=== PATIENT | female | born 1945 | race Caucasian/White ===

== ENCOUNTER 2017-09-08 00:56 | Inpatient (IN) | payer BC ==
[~2017-09-08] VITALS: Ht 160 cm; Wt 89.4 kg
[2017-09-08] VITALS (10 sets, daily range): BP systolic 123–170; BP diastolic 70–110
--- NOTE | 2017-09-08 01:00 | NUR ---
ARRIVAL PATIENT AMBULATORY, REQUESTING TO USE THE RESTROOM URINE SAMPLE OBTAINED ASSISTED TO ROOM 1, CONNECTED TO BEDSIDE MONITOR HR AFIB 177 BP 170/110 RR 18 O2 94% ON RA TEMP 98.5 DENIES PAIN STATES SHE HAS BEEN ON A LONG ROAD TRIP AND WHEN SHE GOT HOME SHE RELAXED WITH A GLASS OF WINE AND SUDDENLY BEGAN TO FEEL PALPITATIONS IN HER CHEST STATES SHE HAS NEVER HAD THIS HAPPEN BEFORE DENIES ALL MEDICAL HISTORY, HOWEVER IS A PATIENT OF DR CORNEJO FOR "IRREGULAR HEART RHYTHM" NOT OFFICALLY DIAGNOSED WITH AFIB, NOT TAKING A BLOOD THINNER OF ANY KIND. STATES SHE ONLY TAKES LOSARTAN AND "SOME KIND OF CHOLESTEROL MEDICATION" AT THE BEDSIDE, UNABLE TO REMEMBER MEDICATION NAMES.
--- NOTE | 2017-09-08 01:05 | NUR ---
RESTROOM REQUESTING TO USE THE RESTROOM TO HAVE A BOWEL MOVEMENT. STEADY GAIT TO AND FROM THE RESTROOM. UPON RETURN FROM RESTROOM, PATIENT RECONNECTED TO BEDSIDE MONITOR, HR AFIB 93. DR CARD AT BEDSIDE TO ASSESS PATIENT. NEW ORDERS RECEIVED FOR 20MG CARDIZEM IV BOLUS, 10MG AT A TIME.
--- NOTE | 2017-09-08 01:10 | NUR ---
CARDIZEM 10MG IV CARDIZEM ADMINISTERED AND FLUSHED HR AFIB 177 BP 170/110 RR 16 O2 98% DENIES PAIN STATES SHE STILL FEELS ANXIOUS AND LIKE HER HEART IS POUNDING OUT OF HER CHEST.
[2017-09-08] MEDS ORDERED: CARDIZEM IV ONE ×4 (01:12→02:30)
--- NOTE | 2017-09-08 01:12 | NUR ---
1/2 NS NEW ORDER RECEIVED TO INITIATE 1/2NS AT 100CC/HR.
[2017-09-08] MEDS ORDERED: HNS 1000ML 1,000 ML ONE (01:14)
[2017-09-08 01:17] LABS: BASOPHIL % 0.4 % (0.0-0.2); EOSINOPHIL # 0.2 10^3/uL (0.0-0.2); EOSINOPHIL % 2.1 % (0.0-5.0); HEMOGLOBIN 13.5 g/dL (12.0-15.0); LYMPHOCYTES # 3.5 10^3/uL (1.0-4.8); LYMPHOCYTES % 42.7 % (24.0-44.0); MEAN CELL HGB 29.5 pg (26-34); MEAN CELL HGB CONCENTRATION 32.5 g/dL (33-37); MEAN CORP VOLUME 90.8 fL (78-100); MEAN PLATELET VOLUME 8.9 fL (7.8-11.0); MONOCYTES # 0.8 10^3/uL (0.3-0.8); MONOCYTES % 9.4 % (5.0-12.0); NEUTROPHIL # 3.7 10^3/uL (1.8-7.7); NEUTROPHILS % 45.2 % (41.0-85.0); RED CELL DISTRIBUTION WIDTH 14.4 % (11.5-14.5); WHITE BLOOD CELL 8.1 10^3/uL (4.5-11.0)
--- NOTE | 2017-09-08 01:18 | PCM.EKG ---
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
--- NOTE | 2017-09-08 01:19 | NUR ---
CARDIZEM 10MG IV ADMINISTERED AND FLUSHED HR ABIB 101 BP 166/70 RR 16 O2 97% DENIES PAIN, STATES SHE IS FEELING LESS ANXIOUS BUT CAN STILL FEEL HER HEART POUNDING INSIDE HER CHEST.
--- NOTE | 2017-09-08 01:25 | NUR ---
EDUCATION EXPLAINED CARDIZEM BOLUS, AFIB DISEASE PROCESS, POSSIBLE ADMISSION PATIENT HAS NO FURTHER QUESTIONS, CONCERNS OR NEEDS REMAINS AT BEDSIDE
[2017-09-08] MEDS ORDERED: CARDIZEM IV STA (01:27)
--- NOTE | 2017-09-08 01:27 | ER.PDOC ---
General Chief Complaint: Palpitations Stated Complaint: PALPITATIONS Time seen by MD: 01:24 Source: patient, family Exam Limitations: no limitations History of Present Illness Initial Comments 72 year old white female with acute onset of palpitation and dizziness. Started less than an hour prior to consult with no chest pain. Sudden in onset with no similar episodes in the past. No fever. Remember taking an OTC decongestant prior to coming to the hospital. Timing/Duration: 1 hour Quality: fast, pounding heart beat, dizziness History of: decongestant Modifying Factors: defecating Associated Symptoms: dizziness Allergies: Coded Allergies: No Known Allergies (Unverified , 09/08/17) Past Medical History Medical History: arrhythmia Surgical History: appendectomy, cholecystectomy, tonsillectomy LMP (females 10-50): postmenopause Social History Smoking: non-smoker Alcohol Use: occassionally Drug Use: none Constitutional: weakness EENTM: nose congestion Respiratory: no symptoms reported Cardiovascular: see HPI Gastrointestinal: no symptoms reported Genitourinary: no symptoms reported Musculoskeletal: no symptoms reported Skin: no symptoms reported Psychiatric/Neurological: no symptoms reported Endocrine: no symptoms reported Hematologic/Lymphatic: no symptoms reported Physical Exam HEENT: PERRL/EOMI, Normal ENT Inspection, TMs Normal, Pharynx Normal Neck: Non-Tender, Full Range of Motion, Supple, Normal Inspection Respiratory: chest non-tender, lungs clear, normal breath sounds, no respiratory distress, no accessory muscle use Cardiovascular: No Edema, No Gallop, No JVD, Tachycardia, Irregularly Irregular Gastrointestinal: Normal Bowel Sounds, No Organomegaly, No Pulsatile Mass, Non Tender, Soft Extremities: Normal Range of Motion, Non-Tender, Normal Inspection, No Pedal Edema, No Calf Tenderness, Normal Capillary Refill 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 Ha Duration or Time Spent with Pa: PARUL DICKERSON MD Sep 08, 2017 01:27
[2017-09-08] MEDS ORDERED: NS 100ML 100 ML IV ONE (01:42)
--- NOTE | 2017-09-08 01:42 | NUR ---
CARDIZEM GTT NEW ORDER RECEIVED TO START CARDIZEM GTT AT 2.5MG/HR HR AFIB 102-116 BP 170/82 RR 16 O2 97% DENIES PAIN, STATES SHE IS BEGINNING TO FEEL BETTER.
[2017-09-08] MEDS ORDERED: D5W IV ONE (01:43)
--- NOTE | 2017-09-08 01:45 | DIREP ---
PROCEDURE:CHEST 1 VIEW COMPARISON:[facility], CT, CT-ABDOMEN /PELVIS W W/O CONTRAST, 03/20/2012, 08:12 AM. [facility], CR, ABD 2V WITH CXR, 02/05/2011, 01:51 AM. INDICATIONS:HEART PALPITATIONS FINDINGS: LUNGS/PLEURA:No significant pulmonary parenchymal abnormalities. No effusions. VASCULATURE:Normal. Unremarkable pulmonary vasculature. CARDIAC:Normal. No cardiac silhouette abnormality or cardiomegaly. MEDIASTINUM:Normal. No visible mass or adenopathy. BONES:Normal. No fracture or visible bony lesion. OTHER:EKG leads overlie the chest. CONCLUSION:No acute cardiopulmonary abnormalities. Dictated by: Sunny Sheffield M.D. on 09/08/2017 at 01:44 AM
[2017-09-08 01:47] LABS: ALANINE AMINOTRANSFERASE(ML) 31 U/L (12-78); ALKALINE PHOSPHATASE 70 U/L (50-136); ASPARTATE AMINO TRANSFERASE 22 U/L (0-35); CALCIUM 8.5 mg/dL (8.4-10.5); CARBON DIOXIDE 23.5 mmol/L (20.0-32); GLUCOSE 136 mg/dL (70-110)
--- NOTE | 2017-09-08 01:50 | NUR ---
DR ELISEO CARD ON THE PHONE WITH DR GOMES REGARDING POSSIBLE ADMISSION. ACCEPTED ADMISSION, NEW ORDERS RECEIVED FROM DR GOMES TO STOP THE CARDIZEM GTT AND INITIATE LOPRESSOR IV SO PATIENT CAN BE ADMITTED TO THE MEDICAL SURGICAL FLOOR
[2017-09-08] MEDS ORDERED: TOPROL XL PO STA (01:55)
[2017-09-08] MEDS ORDERED: HNS 1000ML 1,000 ML IV ONE (02:00)
[2017-09-08] MEDS ORDERED: TOPROL XL PO ONE (02:08)
[2017-09-08] MEDS ORDERED: LOPRESSER ONE ×2 (02:10→02:30)
--- NOTE | 2017-09-08 02:10 | NUR ---
RESTROOM BEDSIDE TOILET PLACED AT BEDSIDE TO DECRASE STRESS TO HEART, ALSO LETS PATIENT REMAIN ON MONITOR AND CONNECTED TO IVF. VOIDED AND BACK IN BED, STEADY GAIT NOTED
[2017-09-08] MEDS ORDERED: LOPRESSER IVP STA (02:19)
--- NOTE | 2017-09-08 02:20 | NUR ---
AFIB DR CARD NOTIFIED PATIENT'S HEART RATE INCREASING TO 150-165 WITH MINIMAL MOVEMENT. NEW ORDER RECEIVED FOR LOPRESSOR 5MG IV X1 WELL ASPIRIN 325MG PO X1
[2017-09-08] MEDS ORDERED: ASPIRIN PO STA (02:22)
[2017-09-08] MEDS ORDERED: ASPIRIN ONE (02:23)
--- NOTE | 2017-09-08 02:34 | NUR ---
LOPRESSOR 5MG IV ADMINISTERED AND FLUSHED HR AFIB 134 BP 153/74 RR 16 O2 97% RA NO PAIN 0238 HR AFIB 75 BP 132/75 RR 18 O2 98% RA NO PAIN
--- NOTE | 2017-09-08 03:07 | NUR ---
ADMIT PATIENT INFORMED OF ROOM ASSIGNMENT ROOM 303 NO FURTHER QUESTIONS OR CONCERNS AT THIS TIME, EXPLAINED ALL MEDICATIONS: LOPRESSOR IV LOPRESSOR PO CARDIZEM IV 1/2NS HR AFIB 82 BP 156/89 RR 14 O2 95% RA NO PAIN
--- NOTE | 2017-09-08 07:00 | NUR ---
REPORT RECEIVED REPORT, ASSUMED CARE OF PT
--- NOTE | 2017-09-08 08:31 | PCM.EKG ---
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
[2017-09-08] MEDS ORDERED: THYR60TA PO (08:49)
[2017-09-08] MEDS ORDERED: LEVO75TA6 PO (08:49)
[2017-09-08] MEDS ORDERED: HYDR12.53 PO (08:49)
[2017-09-08] MEDS ORDERED: LOSA50TA6 PO (08:49)
[2017-09-08] MEDS ORDERED: OMEP20CA12 PO (08:49)
[2017-09-08] MEDS ORDERED: LOPRESSOR PO SCH (09:00)
[2017-09-08] MEDS ORDERED: COZAAR ONE (09:52)
[2017-09-08] MEDS ORDERED: PROTONIX PO ONE (09:52)
[2017-09-08] MEDS ORDERED: HYDROCHLOROTHIAZIDE ONE (09:52)
[2017-09-08] MEDS ORDERED: LOPRESSER PO SCH (10:30)
[2017-09-08] MEDS ORDERED: METO25TA4 PO (10:36)
[2017-09-08] MEDS ORDERED: ASPI325T17 PO (10:36)
--- NOTE | 2017-09-08 10:53 | PRM.DC ---
Discharge Summary Date of Discharge: Sep 08, 2017 Reason for Visit: Palpitations History Present Illness: (1) Paroxysmal atrial fibrillation with RVR SEVERITY: MILD INTERMITTENT Status: Resolved ICD Code: I48.0 - Paroxysmal atrial fibrillation SNOMED: 994520401, [id number] Assessment & Plan: Metoprolol twice daily (2) Chronic atrial fibrillation SEVERITY: MILD PERSISTENT Status: Chronic ICD Code: I48.2 - Chronic atrial fibrillation SNOMED: 572961902 Assessment & Plan: Continue current medical management Aspirin 325mg daily Follow up with Cardiology next available appointment (3) Hypothyroidism SEVERITY: MILD PERSISTENT Status: Chronic ICD Code: E03.9 - Hypothyroidism, unspecified SNOMED: 85192663 Assessment & Plan: Continue current medical management General: Alert, Oriented X3, Cooperative, No acute distress HEENT: PERRLA, EOMI Neck: Supple, No JVD Lungs: Clear to auscultation, Normal air movement Heart: Other (irregularly irregular, rate less than 100) Abdomen: Normal bowel sounds, Soft, No tenderness Extremities: No clubbing, No cyanosis Skin: No breakdown, No significant lesion Neuro: Normal speech, Strength at 5/5 X4 ext, Cranial nerves 3-12 NL Psych/Mental Status: Mood NL Results(Labs/Rad) Laboratory Tests Test 09/08/17 01:14 09/08/17 09:20 White Blood Count 8.1 10^3/uL Red Blood Count 4.57 10^6/uL Hemoglobin 13.5 g/dL Hematocrit 41.5 % Mean Corpuscular Volume 90.8 fL Mean Corpuscular Hemoglobin 29.5 pg Mean Corpuscular Hemoglobin Concent 32.5 g/dL Red Cell Distribution Width 14.4 % Platelet Count 316 10^3/uL Mean Platelet Volume 8.9 fL Neutrophils (%) (Auto) 45.2 % Lymphocytes (%) (Auto) 42.7 % Monocytes (%) (Auto) 9.4 % Neutrophils # (Auto) 3.7 10^3/uL Lymphocytes # (Auto) 3.5 10^3/uL Monocytes # (Auto) 0.8 10^3/uL Absolute Immature Granulocyte (auto 0.02 10^3 u/L Eosinophils % 2.1 % Basophils % 0.4 % Basophils # 0.0 10^3/uL Eosinophil Count 0.2 10^3/uL Prothrombin Time 9.4 SEC Prothrombin Time INR (Non-Therap) 0.9 Activated Partial Thromboplast Time 24.0 SEC D-Dimer 0.46 mg/L Sodium Level 142 mmol/L Potassium Level 3.5 mmol/L Chloride Level 107.0 mmol/L Carbon Dioxide Level 23.5 mmol/L Anion Gap 15.0 Blood Urea Nitrogen 9 mg/dL Creatinine 0.90 mg/dL Estimated GFR () 74.5 BUN/Creatinine Ratio 10.0 Glucose Level 136 mg/dL Calcium Level 8.5 mg/dL Total Bilirubin 0.2 mg/dL Aspartate Amino Transf (AST/SGOT) 22 U/L Alanine Aminotransferase (ALT/SGPT) 31 U/L Alkaline Phosphatase 70 U/L Total Creatine Kinase 86 U/L 68 U/L Creatine Kinase MB 0.7 ng/mL 1.0 ng/mL Troponin I < 0.02 ng/mL 0.05 ng/mL Pro-B-Type Natriuretic Peptide 265 pg/mL Total Protein 6.8 g/dL Albumin 3.2 g/dL Globulin 3.6 Percent Immature Gran (Cell Imm) 0.20 % Helicobacter pylori Screen NEGATIVE Scheduled Aspirin (Aspirin Ec), 325 MG PO DAILY24 Hydrochlorothiazide (Hydrochlorothiazide), 1 CAP PO DAILY, (Reported) Levothyroxine Sodium (Levothyroxine Sodium), 1 TAB PO DAILY, (Reported) Losartan Potassium (Losartan Potassium), 1 TAB PO DAILY, (Reported) Metoprolol Tartrate 25MG (Lopresser 25MG), 12.5 MG PO BID Omeprazole (Omeprazole), 1 CAP PO DAILY, (Reported) Thyroid,Pork ([place] Thyroid), 1 TAB PO DAILY, (Reported) Sepsis Evaluation @ Discharge Course Blood Pressure Systolic: 139 Blood Pressure Diastolic: 84 Blood Pressure Mean: 102 Notes see dictated report Plan Discharge Date: Sep 08, 2017 Dicharge DX: 1. Paroxysmal atrial fibrillation with RVR, 2. Chronic atrial fibrillation Discharge Disposition: Stable Plan Medications per discharge list Diet and activity as tolerated Follow up with PCP and Cardiology next available appointment Discharge plans discussed with patient, she is her own decision maker and does understand and concur with plans Time spent 25 minutes Problem Qualifiers (1) Hypothyroidism: Hypothyroidism type: acquired Qualified Codes: E03.9 - Hypothyroidism, unspecified VINAY GOMES MD Sep 08, 2017 10:53
--- NOTE | 2017-09-08 11:33 | NUR ---
DISCHARGE DISCHARGE INSTRUCTIONS GIVEN, EDUCATION PROVIDED ON DISEASE PROCESS, NEW MEDICATIONS, AND FOLLOW UP APPOINTMENTS. AT BEDSIDE. PT VERBALIZED UNDERSTANDING. NO QUESTIONS AT THIS TIME. PT AMBULATED OFF UNIT TO PRIVATE VEHICLE ACCOMPANIED BY . NO S/S OF DISTRESS NOTED.
--- NOTE | 2017-09-08 11:50 | NUR ---
DISCHARGE PLANNING: SS VISITED WITH PT REGARDING DISCHARGE PLANNING NEEDS. PT LIVES HOME WITH HER . 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 NO FURTHER NEEDS NOTED OR IDENTIFIED AT THIS TIME GOAL IS TO RETURN BACK HOME WITH TO ROUTINE SELF CARE.
--- NOTE | 2017-09-08 12:24 | HPH ---
ADMIT DATE: 09/08/2017 CHIEF COMPLAINT: Palpitations. HISTORY OF PRESENT ILLNESS: The patient is a pleasant 72-year-old woman with a past medical history significant for hypothyroidism, chronic atrial fibrillation, hypertension who presented to the ER with complaints of palpitations and dizziness. She has known chronic atrial fibrillation and is followed by cardiology in [place]. She is on only a small dose aspirin. She has no history of diabetes, heart failure, or stroke per her history. She has had a couple of episodes of palpitations, this one was enough to make her concerned and started less than an hour prior to arrival to the ER. She was taking some [id number] decongestants prior to coming to the hospital. She also states she missed some of her blood pressure medications. She has been on recent road trip and watching baseball games for a relative for extended period of time. She denies any chest pain. Overnight, her heart rate did significantly improve. She was given IV Cardizem in the Emergency Room. PAST MEDICAL HISTORY: Includes chronic atrial fibrillation, hypothyroidism, and hypertension. PAST SURGICAL HISTORY: She has appendectomy, cholecystectomy, tonsillectomy. ALLERGIES: NO KNOWN DRUG ALLERGIES. HOME MEDICATIONS: List includes aspirin 81 mg daily, losartan 50 mg daily, levothyroxine 75 mcg daily, hydrochlorothiazide 12.5 mg daily, omeprazole 20 mg daily. SOCIAL HISTORY: She lives at home. No alcohol, tobacco or illicit drug use history. FAMILY HISTORY: Negative for early coronary artery disease or diabetes. REVIEW OF SYSTEMS: CARDIAC: Denies any chest pain, shortness of breath or dyspnea on exertion. PULMONARY: No cough, sputum production or pleuritic chest pain. GASTROINTESTINAL: No nausea, vomiting, diarrhea or constipation. All else negative in 10 point review of system except as in HPI. PHYSICAL EXAMINATION: VITAL SIGNS: Upon arrival to the Emergency Room, height 160 cm, weight 89.4 kilograms, BMI 34.9. Temperature 98.5, pulse of 148 and irregular, respiratory rate 16, initial blood pressure is 170/110, and O2 saturations are 98% on room air. GENERAL: She is alert, in no acute distress at time of exam. HEENT: Pupils equal, round, reactive to light. Sclerae are anicteric. Oropharynx is clear. Mucous membranes are moist. NECK: Supple, no lymphadenopathy. CARDIOVASCULAR: At time of exam was irregularly irregular with rate less than 100. LUNGS: Clear bilaterally. No wheezing. ABDOMEN: Soft. Bowel sounds are present, nontender to palpation. EXTREMITIES: No cyanosis, clubbing, or edema. NEUROLOGIC: Grossly nonfocal. LABORATORY DATA: CBC: White count 8.1, hemoglobin 13.5, platelets 316,000. Differential: 45% neutrophils, 43% lymphocytes and 9% monocytes. Sodium is 142, potassium 3.5, chloride 107, CO2 is 23, BUN 9, creatinine 0.9, glucose 136, calcium is 8.5, total bilirubin 0.2, AST 22, ALT 31, alkaline phosphatase 70, total protein is 6.8, albumin 3.2, total CK 86, CK-MB is 0.7, troponin I is less than 0.02. PT of 9.4, PTT 24.0. D-dimer 0.46. H. pylori is negative. IMAGING STUDIES: Chest x-ray is negative for acute process. ASSESSMENT AND PLAN: The patient is a 72-year-old woman here with paroxysmal atrial fibrillation with rapid ventricular response for chronic atrial fibrillation with uncontrolled hypertension upon arrival with a history of hypothyroidism. 1. From cardiovascular standpoint, continue current cardiovascular medication. She received IV diltiazem in the Emergency Room, which did help and was given oral beta blockers, which is a new medication for initiation of beta oscar therapy. We will continue beta oscar therapy. She improved faster than expected with IV calcium channel oscar and oral beta oscar therapy. 2. Continue her thyroid medicine at current dose. She is clinically euthyroid. 3. Appropriate p.r.n. pain and nausea medication. 4. Monitor on telemetry. 5. Cardiac enzymes. 6. At the time of history and physical exam, she was feeling well, wanted to go home. Her heart rate was irregular, but well controlled with a rate in the 70s-80s. She did improve faster than expected with IV diltiazem and beta oscar was controlling her heart rate well. Routine discharge home. DISCHARGE MEDICATIONS: Resume her previous medications plus metoprolol 12.5 mg p.o. b.i.d. DISCHARGE ACTIVITY: As tolerated. DISCHARGE FOLLOWUP: With primary care physician and Cardiology next available. PLAN: Discharge plans were discussed with the patient. She is own decision maker. She does understand and concur with plans. Time spent on history and physical and discharge on 09/08/2017 is 45 minutes. Alirio Ha MD DR: KIERSTEN/milka JOB# [id number] AARON
[2017-09-09] MEDS ORDERED: SYNTHROID PO SCH (06:30)
[2017-09-09] MEDS ORDERED: HYDROCHLOROTHIAZIDE PO SCH (09:00)
[2017-09-09] MEDS ORDERED: PROTONIX PO SCH (09:00)
[2017-09-09] MEDS ORDERED: COZAAR PO SCH (09:00)
== END 2017-09-08 11:33 | disposition home or self-care (01) | DRG 309 ==
LOC: ER 00:56 → MS 02:45
PROVIDERS: ADMIT Internal Medicine; ATTEND Internal Medicine
DX: I48.0 Paroxysmal atrial fibrillation (principal); E44.1 Mild protein-calorie malnutrition; E03.9 Hypothyroidism, unspecified; I10 Essential (primary) hypertension; Z90.49 Acquired absence of other specified parts of digestive tract; Z90.89 Acquired absence of other organs; Z79.899 Other long term (current) drug therapy; Z79.82 Long term (current) use of aspirin
CPT/HCPCS: 36415; 71045; 80053; 82550; 82553; 83880; 84484; 85025; 85379; 85610; 85730; 86677; 93005; 99285; J3490; J7030; J7050; J7060